=== PATIENT | female | born 1965 | race Caucasian/White ===

== ENCOUNTER 2016-11-01 07:46 | Day surgery (SDC) | payer MEDICARE, OTHER ==
--- NOTE | ~2016-11-01 | EGD ---
EGD REPORT [facility] [address] [address] NAME: BRITNEY GAO : 61 STATUS : REG [facility]#: [id number] AGE: 51 ADM/REG DATE : 11/01/16 MR#: [id number] REPORT SERV DATE: 11/01/16 DICTATED BY: GEORGIA MCMAHAN DATE: 11/01/16 REPORT STATUS : Draft [facility]ANS[facility]ED BY: [facility] DATE: 11/01/16 Endoscopy Center Patient Name: Britney Gao Date of : 1965 Attending MD: GEORGIA MCMAHAN MD Procedure Date No Time: 11/01/2016 Procedure: Upper GI endoscopy Indications: Gastro-esophageal reflux disease, Surveillance for malignancy due to personal history of Oswald's esophagus Referring MD: CORA MANTILLA Medicines: Propofol per Anesthesia Complications: No immediate complications. Procedure: Pre-Anesthesia Assessment: - ASA Grade Assessment: III - A patient with severe systemic disease. After obtaining informed consent, the endoscope was passed under direct vision. Throughout the procedure, the patient's blood pressure, pulse, and oxygen saturations were monitored continuously. The GIF [id number] was introduced through the mouth, and advanced to the third part of duodenum. The upper GI endoscopy was accomplished without difficulty. The patient tolerated the procedure well. Findings: There were esophageal mucosal changes secondary to established long-segment Oswald's disease present in the lower third of the esophagus. The maximum longitudinal extent of these mucosal changes was 8 cm in length. Mucosa was biopsied with a cold forceps for histology in 4 quadrants at intervals of 1 cm in the lower third of the esophagus. One specimen bottle was sent to pathology. A small hiatus hernia was present. as seen on retroflexion Diffuse moderate inflammation characterized by adherent blood, congestion (edema), erosions and erythema was found in the entire examined stomach. Biopsies were taken with a cold forceps for Helicobacter pylori testing. Localized moderate inflammation characterized by congestion (edema), erythema and granularity was found in the duodenal bulb. Biopsies were taken with a cold forceps for evaluation of celiac disease. And giardia, whipple's disease, and enteritis The 2nd part of the duodenum and 3rd part of the duodenum were normal. Biopsies were taken with a cold forceps for evaluation of celiac disease. And giardia, whipple's disease, and enteritis Impression: - Esophageal mucosal changes secondary to established EGD REPORT [address] [place]. [address] NAME: BRITNEY GAO : 61 STATUS : REG [facility] PAT#: [id number] AGE: 51 ADM/REG DATE : 11/01/16 MR#: [id number] REPORT SERV DATE: 11/01/16 DICTATED BY: GEORGIA MCMAHAN DATE: 11/01/16 REPORT STATUS : Draft TRANSCRIBED BY: [facility] DATE: 11/01/16 long-segment Oswald's disease. Biopsied. - Hiatus hernia. - Gastritis. Biopsied. - Duodenitis. Biopsied. - Normal 2nd part of the duodenum and 3rd part of the duodenum. Biopsied. Recommendation: - Patient has a contact number available for emergencies. The signs and symptoms of potential delayed complications were discussed with the patient. Return to normal activities tomorrow. Written discharge instructions were provided to the patient. - Return to previous diet. - Continue present medications. - Use Prilosec (omeprazole) 40 mg PO daily. - take 30-60 minutes before breakfast or supper - Use sucralfate tablets 1 gram PO QID. - take before each meal and at bedtime - Return to my office as previously scheduled. - Discharge patient to home. Procedure Code(s): --- Professional --- 05564, Esophagogastroduodenoscopy, flexible, transoral; with biopsy, single or multiple Diagnosis Code(s): --- Professional --- K22.70, Oswald's esophagus without dysplasia K44.9, Diaphragmatic hernia without obstruction or gangrene K29.70, Gastritis, unspecified, without bleeding K29.80, Duodenitis without bleeding K21.9, Gastro-esophageal reflux disease without esophagitis CPT copyright 2013 [employer]. All rights reserved. The codes documented in this report are preliminary and upon professional fee coder review may be revised to meet current compliance requirements. Georgia Mcmahan MD GEORGIA MCMAHAN MD 11/01/2016 10:20 AM This report has been signed electronically. Number of Addenda: 0 EGD REPORT [facility] [address] [place]. [address] NAME: BRITNEY GAO : 61 STATUS : REG [facility] PAT#: [id number] AGE: 51 ADM/REG DATE : 11/01/16 MR#: [id number] REPORT SERV DATE: 11/01/16 DICTATED BY: GEORGIA MCMAHAN DATE: 11/01/16 REPORT STATUS : Draft TRANSCRIBED BY: [employer] DATE: 11/01/16 Note Initiated On: 11/01/2016 8:42 AM Scope Withdrawal Time 0 hours 0 minutes 0 seconds [address] [place] [address]
[~2016-11-01 07:46] MED LIST: ADVAIR250 INH; ALAVERT10 MG PO; CLARIT10 PO; FISH-EPA1000 MG PO; KLONO5 PO; KLOR-CON M2020 MEQ PO; LOP25 PO; METAMUCIL CAN7 OZ PO; MICRO-K10 MEQ PO; MULTIPLE VIT PO; MVI PO; NASONEX NAS; NEUR100 PO; OYST-CAL500 MG PO; PRILO PO; PRIN10 PO; PROZAC40 MG PO; SINGULAIR1 PO; SYMBICORT 160/41 INH INH; T PO; ZOCOR40 PO
== END 2016-11-01 23:59 | disposition home or self-care (01) ==
LOC: DMU 07:46
PROVIDERS: Internal Medicine Gastroenterology
PROC: 0DB98ZX Excision of Duodenum, Via Natural or Artificial Opening Endoscopic, Diagnostic (ICD-10-PCS; 2016-11-01)
PROC: 0DB68ZX Excision of Stomach, Via Natural or Artificial Opening Endoscopic, Diagnostic (ICD-10-PCS; 2016-11-01)
PROC: 0DB58ZX Excision of Esophagus, Via Natural or Artificial Opening Endoscopic, Diagnostic (ICD-10-PCS; principal; 2016-11-01 09:00)
DX: Q40.2 Other specified congenital malformations of stomach (principal); K22.70 Barrett's esophagus without dysplasia; K29.50 Unspecified chronic gastritis without bleeding; K44.9 Diaphragmatic hernia without obstruction or gangrene; K29.70 Gastritis, unspecified, without bleeding; K29.80 Duodenitis without bleeding; K21.9 Gastro-esophageal reflux disease without esophagitis; Z88.5 Allergy status to narcotic agent; Z88.8 Allergy status to other drugs, medicaments and biological substances; Z88.1 Allergy status to other antibiotic agents; H81.399 Other peripheral vertigo, unspecified ear; I37.0 Nonrheumatic pulmonary valve stenosis; J45.909 Unspecified asthma, uncomplicated; J44.9 Chronic obstructive pulmonary disease, unspecified; G47.33 Obstructive sleep apnea (adult) (pediatric); F41.9 Anxiety disorder, unspecified; M19.90 Unspecified osteoarthritis, unspecified site; K58.1 Irritable bowel syndrome with constipation; Z90.710 Acquired absence of both cervix and uterus; F32.9 Major depressive disorder, single episode, unspecified; I35.1 Nonrheumatic aortic (valve) insufficiency
CPT/HCPCS: 88305; 88342